=== PATIENT | female | born 1985 | race Caucasian/White ===

== ENCOUNTER 2017-10-13 00:45 | Outpatient (CLI) | payer BC, MEDICAID ==
[2017-10-13 01:32] LABS: APPEARANCE,URINE SLIGHTLY-CLOUDY; BILIRUBIN,URINE NEGATIVE (NEGATIVE); COLOR,URINE YELLOW; GLUCOSE, URINE NEGATIVE (NEGATIVE); KETONES,URINE NEGATIVE (NEGATIVE); LEUKOCYTE ESTERASE,URINE NEGATIVE (NEGATIVE); NITRITE,URINE NEGATIVE (NEGATIVE); PROTEIN,URINE NEGATIVE (NEGATIVE); URINE SPECIFIC GRAVITY 1.009; UROBILINOGEN,URINE NEGATIVE mg/dL (<2.0)
[2017-10-13 01:47] LABS: URINE AMPHETAMINES SCREEN NEGATIVE; URINE BARBITURATES SCREEN NEGATIVE; URINE BENZODIAZEPINES SCREEN NEGATIVE; URINE COCAINE SCREEN NEGATIVE; URINE MARIJUANA (THC) SCREEN NEGATIVE; URINE METHADONE SCREEN NEGATIVE; URINE PHENCYCLIDINE SCREEN NEGATIVE
== END 2017-10-13 04:26 | disposition home or self-care (01) ==
LOC: LC 00:45
PROVIDERS: ATTEND Obstetrics & Gynecology
PROC: 4A1HXCZ Monitoring of Products of Conception, Cardiac Rate, External Approach (ICD-10-PCS; principal; 2017-10-13)
DX: O47.1 False labor at or after 37 completed weeks of gestation (principal); Z3A.38 38 weeks gestation of pregnancy
CPT/HCPCS: 59025; 80307; 81005

== ENCOUNTER 2017-10-21 14:47 | Inpatient (IN) | payer BC, MEDICAID ==
--- NOTE | 2017-10-21 14:50 | Non Stress Test Report ---
Non Stress Test Datetime Report Generated by CPN: 10/21/2017 14:50 DEMOGRAPHIC EGA NST: 38.4 INDICATION Indication for Study: Ordered by Provider URINE RESULTS Urine Protein, NST: Negative Urine Ketones - NST: Negative Urine Glucose - NST: Negative Urine Blood - NST: Negative MONITORING Monitor Explained: Monitor Explained; Test Explained; Patient Verbalized Understanding Time on Monitor: 10/13/2017 01:48 Time off Monitor: 10/13/2017 04:05 NST Duration: 137 NST INTERVENTIONS NST Interventions: PO Hydration Physician Notified NST: Dr. Ramirez BABY A: [id number] BABY A Movement : Present Contraction Frequency : 1-11 FHR Baseline : 135 Accelerations : 15X15 Decelerations : None Variability : Moderate 6-25bpm NST Review: Meets Criteria for Reactive NST NST Review and Verified By : GENNARO Campos NSHarsha Results: Reactive NST REPORT Report Trigger: Send Report
[2017-10-21 15:29] LABS: APPEARANCE,URINE CLEAR; BILIRUBIN,URINE NEGATIVE (NEGATIVE); COLOR,URINE YELLOW; GLUCOSE, URINE NEGATIVE (NEGATIVE); KETONES,URINE NEGATIVE (NEGATIVE); LEUKOCYTE ESTERASE,URINE NEGATIVE (NEGATIVE); NITRITE,URINE NEGATIVE (NEGATIVE); PROTEIN,URINE NEGATIVE (NEGATIVE); URINE SPECIFIC GRAVITY 1.006; UROBILINOGEN,URINE NEGATIVE mg/dL (<2.0)
[2017-10-21 15:48] LABS: URINE AMPHETAMINES SCREEN NEGATIVE; URINE BARBITURATES SCREEN NEGATIVE; URINE BENZODIAZEPINES SCREEN NEGATIVE; URINE COCAINE SCREEN NEGATIVE; URINE MARIJUANA (THC) SCREEN NEGATIVE; URINE METHADONE SCREEN NEGATIVE; URINE PHENCYCLIDINE SCREEN NEGATIVE
--- NOTE | 2017-10-21 17:42 | Non Stress Test Report ---
Non Stress Test Datetime Report Generated by CPN: 10/21/2017 17:42 DEMOGRAPHIC EGA NST: 39.5 INDICATION Indication for Study: Ordered by Provider MONITORING Monitor Explained: Monitor Explained; Test Explained; Patient Verbalized Understanding Time on Monitor: 10/21/2017 15:14 Time off Monitor: 10/21/2017 15:38 NST Duration: 24 NST INTERVENTIONS NST Interventions: None Physician Notified NST: Dr. Cutler BABY A Movement : Present Contraction Frequency : 4-7 FHR Baseline : 155 Accelerations : 15X15 Decelerations : None Variability : Moderate 6-25bpm NST Review: Meets Criteria for Reactive NST NST Review and Verified By : Mayra Delgado RN NST Results: Reactive NST REPORT Report Trigger: Send Report
[2017-10-21] MEDS ORDERED: LIDOCAINE 1% INJ-PF (10 MG/ML) 30 ML SDV ONE (19:05)
[2017-10-21] MEDS ORDERED: OXYTOCIN/NORMAL SALINE 20 UNIT/1,000 ML RTUINJ ONE (19:05)
[2017-10-21] MEDS ORDERED: MISOPROSTOL 0.2 MG TABLET ONE (19:05)
[2017-10-21] MEDS ORDERED: RINGERS SOLUTION,LACTATED 1,000 ML IV PRN (19:06)
[2017-10-21] MEDS ORDERED: RINGERS SOLUTION,LACTATED 1,000 ML IV ONE (19:06)
[2017-10-21 19:31] LABS: ABSOLUTE BASOPHILS # (AUTO) 0.1 10^3/uL (0.0-0.2); ABSOLUTE EOSINOPHILS # (AUTO) 0.1 10^3/uL (0.0-0.6); ABSOLUTE LYMPHOCYTES (AUTO) 2.5 10^3/uL (0.5-4.7); ABSOLUTE MONOCYTES (AUTO) 0.7 10^3/uL (0.1-1.4); ABSOLUTE NEUT (AUTO) 13.7 10^3/uL (1.7-8.2); BASOPHILS % (AUTO) 0.4 % (0-2); EOSINOPHILS % (AUTO) 0.4 % (0-6); HEMATOCRIT 37.9 % (36.0-47.0); HEMOGLOBIN 13.2 g/dL (12.0-15.5); LYMPHOCYTES % (AUTO) 14.8 % (13-45); MEAN CORPUSCULAR HEMOGLOBIN 30.3 pg (27.0-33.4); MEAN CORPUSCULAR HGB CONC 34.9 g/dL (32.0-36.0); MEAN CORPUSCULAR VOLUME 87 fl (80-97); MONOCYTES % (AUTO) 4.1 % (3-13); PLATELET COUNT 189 10^3/uL (150-450); RED BLOOD COUNT 4.37 10^6/uL (3.72-5.28); RED CELL DISTRIBUTION WIDTH 13.6 % (11.5-14.0); SEGMENTED NEUTROPHILS % (AUTO) 80.3 % (42-78); TOTAL CELLS COUNTED % (AUTO) 100 %; WHITE BLOOD COUNT 17.1 10^3/uL (4.0-10.5)
--- NOTE | 2017-10-21 19:49 | Admission Physical ---
Datetime Report Generated by CPN: 10/21/2017 19:48 CURRENT ADMISSION Chief Complaint: Uterine Contractions Indication for Induction: Not Applicable Admit Impression : Term, Intrauterine ; Active Labor; Intact Membranes Admit Plan: Admit to Unit; Initiate Labor Protocol ALLERGIES Medication Allergies: Yes Medication Allergies: codeine/SV/Anaphylaxis (10/13/2017) Latex: No Latex Allergies Food Allergies: none Environmental Allergies: none OBSTETRICAL HISTORY EDC: 10/23/2017 00:00 : 6 Para: 2 Term: 2 : 0 SAB: 3 IAB: 0 Ectopic: 0 Livin Cesareans: 0 VBACs: 0 Multiple Births: 0 Gestational Diabetes: No Rh Sensitization: No Incompetent Cervix: No STELLA: No Infertility: No ART Treatment: No Uterine Anomaly: No IUGR: No Hx Previous C/S: No Macrosomia: No Hx Loss/Stillborn: No PIH: No Hx : No Placenta Previa/Abruption: No Depression/PP Depression: No PTL/PROM: No Post Hemorrhage: No Current Procedures: Ultrasound Obstetrical History Comments: G1: 2003 G2:2005, , girl 6#1 oz, induced postdates @ 41 weeks G3:2007 (D_C) G4:2010 (D_C) G5:2011, , boy 6# 3 oz @ 39 weeks G6: Current SEE RECORDS Alcohol: No Marijuana : No Cocaine: No Other Illicit Drugs: No Cigarettes: Current Everyday Smoker. [id number] Cigarette Frequency: 5 - 10 per day Advised to Stop: Yes MEDICAL HISTORY Diabetes: No Blood Transfusion: No Pulmonary Disease (Asthma, TB): Yes Breast Disease: No Hypertension: No Operations Accountant Surgery: No Heart Disease: No Hosp/Surgery: Yes Autoimmune Disorder: No Anesthetic Complications: No Kidney Disease: No Abnormal Pap Smear: Yes Neuro/Epilepsy: No Psychiatric Disorders: No Other Medical Diseases: No Hepatitis/Liver Disease: No Significant Family History: No Varicosities/Phlebitis: No Trauma/Violence : No Thyroid Dysfunction: No Medical History Comments: asthma (in childhood), PCOS, all abnormal paps per pt INFECTIOUS HISTORY Gonorrhea: No Genital Herpes: No Chlamydia: Yes Tuberculosis: No Syphilis: No Hepatitis: No HIV/AIDS Exposure: No Rash or Viral Illness: No HPV: No Infectious History Comments: chlamydia this (LIZETH negative); abnormal paps every year. PHYSICAL EXAM General: Normal HEENT: Normal Neurologic: Normal Thyroid: Deferred Heart: Normal Lungs: Normal Breast: Deferred Back: Normal Abdomen: Normal Genitourinary Exam: Normal Extremities: Normal DTRs: Normal Pelvic Type: Adequate Vital Signs: Reviewed VAGINAL EXAM Dilatation: 6 Effacement: 80 Station: 1 Contraction Comments: q 2-3 MEMBRANES Membranes: Intact FETUS A EGA: 39.5 Monitoring: External US FHR- Baseline: 155 Variability: Moderate 6-25bpm Accelerations: 15X15 Decelerations: None FHR Category: Category I Presentation: Vertex Admit Comment: 32yo [id number] at 39+5ega presented with regular uterine contractions and noted cervical change. AROM performed with thick meconium. Pt declines epidural and pain mediations including pudendal block. Elevated BPs at [facility] - PIH labs normal. Obesity - failed 1 hr GTT. H/o PCOS. Desires BTL. Chlamydia pos at [facility] - good LIZETH. REpeat GC/Chlam today. Rh negativce. GBS negative. Anticipate . Pt has a h/o fast labors. PLANS FOR LABOR AND DELIVERY Labor and Delivery: None Pain Management: None Feeding Preference: Breast Benefit of Breast Feed Discussed: Yes Circumcision: Yes INFORMED CONSENT Informed Consent Obtained: Vaginal Delivery; Risks, Benefits and Alternatives Discussed Signature: with User ID: [email or web address]
[2017-10-21] MEDS ORDERED: DIPH/PERTUSS(ACELL)/TETANUS VAC/PF 0.5 ML SYR (>=10YO) IM PRN (20:20)
[2017-10-21] MEDS ORDERED: NA PHOS,M-B/NA PHOS,DI-BA (ADULT) 133 ML ENEMA PR PRN (20:20)
[2017-10-21] MEDS ORDERED: OXYTOCIN/NORMAL SALINE 20 UNIT/1,000 ML RTUINJ IV PRN (20:20)
[2017-10-21] MEDS ORDERED: PROMETHAZINE HCL 25 MG TABLET PO PRN (20:20)
[2017-10-21] MEDS ORDERED: GLYCERIN/WITCH HAZEL LEAF 1 EACH MED..PAD TP PRN (20:20)
[2017-10-21] MEDS ORDERED: PSEUDOEPHEDRINE HCL 30 MG TABLET PO PRN (20:20)
[2017-10-21] MEDS ORDERED: DIPHENHYDRAMINE HCL 25 MG CAPSULE PO PRN (20:20)
[2017-10-21] MEDS ORDERED: PROMETHAZINE HCL INJ 25 MG/1 ML VIAL IV PRN (20:20)
[2017-10-21] MEDS ORDERED: BENZOCAINE/MENTHOL AEROSOL SPRAY 56 ML TOP PRN (20:20)
[2017-10-21] MEDS ORDERED: ACETAMINOPHEN 325 MG TABLET PO PRN (20:20)
[2017-10-21] MEDS ORDERED: MAGNESIUM HYDROXIDE SUSP 30 ML UDCUP PO PRN (20:20)
[2017-10-21] MEDS ORDERED: ZOLPIDEM TARTRATE 5 MG TABLET PO PRN (20:20)
[2017-10-21] MEDS ORDERED: DIBUCAINE 1% OINTMENT 28 GM TP PRN (20:20)
[2017-10-21] MEDS ORDERED: MEASLES,MUMPS&RUBELLA VACC/PF 0.5 ML VIAL SUBCUT PRN (20:20)
[2017-10-21] MEDS ORDERED: PROMETHAZINE HCL 25 MG SUPP.RECT PR PRN (20:20)
--- NOTE | 2017-10-21 21:31 | Warning Signs in Babies ---
VOD Warning Signs Datetime Report Generated by [facility]: 10/21/2017 21:31 VOD#608 -Warning Signs in Babies: Needs to be viewed. (10/13/2017 00:55:Nicolette Sol RN)
[2017-10-22] MEDS: FAMOTIDINE 20 MG TABLET PO SCH ×3 (00:23→22:08)
[2017-10-22] MEDS: IBUPROFEN 800 MG TABLET PO SCH ×4 (00:23→22:08)
[2017-10-22 08:04] LABS: HEMATOCRIT 37.7 % (36.0-47.0); HEMOGLOBIN 13.2 g/dL (12.0-15.5); MEAN CORPUSCULAR HEMOGLOBIN 30.4 pg (27.0-33.4); MEAN CORPUSCULAR HGB CONC 34.9 g/dL (32.0-36.0); MEAN CORPUSCULAR VOLUME 87 fl (80-97); PLATELET COUNT 170 10^3/uL (150-450); RED BLOOD COUNT 4.33 10^6/uL (3.72-5.28); RED CELL DISTRIBUTION WIDTH 13.6 % (11.5-14.0); WHITE BLOOD COUNT 14.7 10^3/uL (4.0-10.5)
[2017-10-22 09:14] LABS: CHLAM PCR NOT DETECTED (NOT DETECT); GON PCR NOT DETECTED (NOT DETECT)
--- NOTE | 2017-10-22 10:31 | PDOC PROGRESS REPORT ---
Subjective-OB Progress Note for:: 10/22/17 Subjective: 32yo G6 now P3 s/p ppd1. Patient ambulating and voiding without difficulty. Baby in NICU after delivery and in well baby now, and bonding without difficulty at this time. Denies concerns. Physical Exam (OB) Vital Signs: Temp Pulse Resp BP Pulse Ox 99.0 F 88 16 129/82 H 100 10/22/17 08:14 10/22/17 08:14 10/22/17 08:14 10/22/17 08:14 10/22/17 08:14 Intake & Output 10/21/17 10/22/17 10/23/17 06:59 06:59 06:59 Weight 99.79 kg - General General Appearance: Appears well In distress: None - PIH/Pre-Eclampsia Headache: Absent Epigastric Pain: No Visual Changes: No - Episiotomy/Laceration Site Condition: N/A - Lochia Lochia Amount: Small 10-25 ml Lochia Color: Rubra/Red - Abdomen Description: Soft Hernia Present: No Fundal Description: Firm, Midline Fundal Height: u/u - u/2 - Respiratory Respiratory Status: No respiratory distress - Extremities Upper extremity: Normal inspection Lower extremities: Normal inspection - Neurological Cognition: Normal Orientation: AAOx4 - Psychological Associated symptoms: Normal affect, Normal mood Objective-Diagnostic Laboratory: 10/22/17 07:53 10/21/17 10/21/17 10/21/17 15:02 19:00 19:00 WBC 17.1 H RBC 4.37 Hgb 13.2 Hct 37.9 MCV 87 MCH 30.3 MCHC 34.9 RDW 13.6 Plt Count 189 Seg Neutrophils % 80.3 H Lymphocytes % 14.8 Monocytes % 4.1 Eosinophils % 0.4 Basophils % 0.4 Absolute Neutrophils 13.7 H Absolute Lymphocytes 2.5 Absolute Monocytes 0.7 Absolute Eosinophils 0.1 Absolute Basophils 0.1 Urine Color YELLOW Urine Appearance CLEAR Urine pH 7.0 Ur Specific [place] 1.006 Urine Protein NEGATIVE Urine Glucose (UA) NEGATIVE Urine Ketones NEGATIVE Urine Blood NEGATIVE Urine Nitrite NEGATIVE Ur Leukocyte Esterase NEGATIVE Urine WBC (Auto) 1 Urine RBC (Auto) 0 Blood Type B NEGATIVE Antibody Screen NEGATIVE 10/22/17 10/22/17 07:53 07:53 WBC 14.7 H RBC 4.33 Hgb 13.2 Hct 37.7 MCV 87 MCH 30.4 MCHC 34.9 RDW 13.6 Plt Count 170 Seg Neutrophils % Lymphocytes % Monocytes % Eosinophils % Basophils % Absolute Neutrophils Absolute Lymphocytes Absolute Monocytes Absolute Eosinophils Absolute Basophils Urine Color Urine Appearance Urine pH Ur Specific [place] Urine Protein Urine Glucose (UA) Urine Ketones Urine Blood Urine Nitrite Ur Leukocyte Esterase Urine WBC (Auto) Urine RBC (Auto) Blood Type Cancelled Antibody Screen Assessment and Plan(PN) - Assessment and Plan (1) Vaginal delivery Is this a current diagnosis for this admission?: Yes Plan: Routine pp care. (2) Active labor at term Is this a current diagnosis for this admission?: Yes Plan: delivered (3) Rh negative status during , third trimester, single gestation Is this a current diagnosis for this admission?: Yes Plan: baby A neg, no rhogam needed (4) Chlamydia infection affecting Qualifiers: Trimester: unspecified trimester Qualified Code(s): O98.819 - Other maternal infectious and parasitic diseases complicating , unspecified trimester; A74.9 - Chlamydial infection, unspecified; A74.9 - Chlamydial infection, unspecified Is this a current diagnosis for this admission?: Yes Plan: negative cultures on admission. - Time Spent with Patient Time with patient: Less than 15 minutes Medications reviewed and adjusted accordingly: Yes - Disposition Anticipated Discharge: Home Within: within 24 hours
[2017-10-22] MEDS: PRENATAL VITAMIN W DHA CAPSULE PO SCH (10:57)
[2017-10-22] MEDS: DOCUSATE SODIUM 100 MG CAPSULE PO SCH ×2 (10:57→17:26)
[2017-10-22] MEDS: SENNOSIDES/DOCUSATE 8.6-50 MG 1 EACH TABLET PO SCH (10:57)
[2017-10-22] MEDS: FERROUS SULFATE 325 MG TABLET PO SCH ×2 (10:57→17:26)
[2017-10-23] MEDS: IBUPROFEN 800 MG TABLET PO SCH ×2 (05:48→14:22)
--- NOTE | 2017-10-23 09:02 | PDOC DISCHARGE SUMMARY ---
Final Diagnosis Discharge Date: 10/23/17 - Final Diagnosis (1) Active labor at term Is this a current diagnosis for this admission?: Yes (2) Chlamydia infection affecting Is this a current diagnosis for this admission?: Yes (3) Rh negative status during , third trimester, single gestation Is this a current diagnosis for this admission?: Yes (4) Vaginal delivery Is this a current diagnosis for this admission?: Yes Discharge Data - Discharge Medication Prescriptions: Ibuprofen [Motrin 800 mg Tablet] 800 mg PO Q8 #60 tablet Home Medications: Pnv W-O Ca No5/Fe Fumarate/FA [-U Capsule] 1 each PO DAILY 07/26/11 Docusate Sodium [Colace] 100 mg PO PRN PRN 10/13/17 Ibuprofen [Motrin 800 mg Tablet] 800 mg PO Q8 #60 tablet 10/23/17 Reason(s) for Admission: Onset of Labor Intrapartum Procedure(s): Spontaneous Vaginal Delivery - Diagnosis Test Laboratory: Temp Pulse Resp BP Pulse Ox 98.0 F 92 18 125/80 100 10/23/17 07:35 10/23/17 07:35 10/23/17 07:35 10/23/17 07:35 10/23/17 07:35 10/21/17 10/21/17 10/22/17 15:02 19:00 07:53 RBC 4.37 4.33 Hgb 13.2 13.2 Hct 37.9 37.7 Urine Opiates Screen NEGATIVE - Discharge information/Instructions Discharge Activity: Activity As Tolerated, Balance Activity w/Rest, Pelvic Rest , No tub bath Discharge Diet: As Tolerated Disposition: HOME, SELF-CARE Follow up with: [facility] in: 4
[2017-10-23] MEDS: SENNOSIDES/DOCUSATE 8.6-50 MG 1 EACH TABLET PO SCH (09:40)
[2017-10-23] MEDS: PRENATAL VITAMIN W DHA CAPSULE PO SCH (09:40)
[2017-10-23] MEDS: DOCUSATE SODIUM 100 MG CAPSULE PO SCH (09:40)
[2017-10-23] MEDS: FAMOTIDINE 20 MG TABLET PO SCH (09:41)
[2017-10-23] MEDS: FERROUS SULFATE 325 MG TABLET PO SCH (09:41)
[2017-10-23 14:06] VITALS: BP 133/82
--- NOTE | 2017-11-01 13:39 | Delivery Summary ---
Del Sum A-C Datetime Report Generated by CPN: 11/01/2017 13:38 DELIVERY PERSONNEL DELIVERY PERSONNEL: [id number] Delivery Doctor:: Alaina Cutler MD Labor and Delivery Nurse:: Tamar Hidalgo RNsmokehouse operator Nurse:: Nicolette Sol RN Nursery Nurse:: Viridaina Fluler RN Reservoir Engineering Consultant/REFRIGERATOR REPAIRMAN: Yaa Grimes, ST MATERNAL INFORMATION Delivery Anesthesia: None Medications After Delivery: Pitocin Drip 20 Units/1000ml NSS Maternal Complications: Precipitous Labor (<3hrs) Provider Comments: VMI delivered in ISHA presentation with compound right hand. Shoulders and body delivered without difficulty. Cord doubly clamped and cut and to maternal abdomen for NRP. Placenta delivered intact spontaneously. FF at U. Good hemostasis. no perineal lacerations. baby to nursery due to Meconium. LABOR SUMMARY EDC: 10/23/2017 00:00 No. Babies in Womb: 1 Attempted: No Labor Anesthesia: None LABOR INFORMATION Reason for Induction: Not Applicable Onset of Labor: 10/21/2017 17:09 Complete Dilatation: 10/21/2017 20:04 Oxytocin: N/A Group B Beta Strep: negative Steroids Given: None Reason Steroids Not Administered: Not Applicable MEMBRANES Membranes Rupture Method: Artificial Rupture of Membranes: 10/21/2017 19:36 Length of Rupture (hr): 0.48 Amniotic Fluid Color: Moderate Meconium Amniotic Fluid Amount: Small STAGES OF LABOR Stage 1 hr: 2 Stage 1 min: 55 Stage 2 hr: 0 Stage 2 min: 1 Stage 3 hr: 0 Stage 3 min: 5 Total Time in Labor hr: 3 Total Time in Labor min: 1 VAGINAL DELIVERY Episiotomy: None Laceration #1: None Laceration Extension #1: N/A Laceration Repair: Not Applicable Sponge Count Correct: Yes Sharps Count Correct: Yes CSECTION DELIVERY Primary Indication: N/A Secondary Indication: N/A CSection Incidence: N/A Labor: N/A Elective: N/A CSection Incision: N/A BABY A INFORMATION Delivery Date/Time: 10/21/2017 20:05 Method of Delivery: Vaginal Born in Route : No : N/A Forceps: N/A Vacuum Extraction: N/A Shoulder Dystocia : No PRESENTATION/POSITION BABY A Presentation: Cephalic Cephalic Presentation: Vertex Vertex Position: Right Occipital Anterior with right compound hand Breech Presentation: N/A PLACENTA INFORMATION BABY A Placenta Delivery Time : 10/21/2017 20:10 Placenta Method of Delivery: Spontaneous Placenta Status: Delivered SCORES BABY A Heart Rate 1 min: >100 bpm Resp Effort 1 min: Good Cry Reflex Irritability 1 min: Cough or Sneeze or Pulls Away Muscle Tone 1 min: Active Motion Color 1 min: Blue/Pale Resuscitation Effort 1 min: N/A SCORE 1 MIN: 8 Heart Rate 5 min: >100 bpm Resp Effort 5 min: Good Cry Reflex Irritability 5 min: Cough or Sneeze or Pulls Away Muscle Tone 5 min: Active Motion Color 5 min: Blue/Pale Resuscitation Effort 5 min: N/A SCORE 5 MIN: 8 INFORMATION BABY A Gestational Age at Delivery: 39.5 Gestational Status: Full Term- 39- 40.6 Weeks Infant Outcome : Liveborn Infant Condition : Stable Sex: Male IDENTIFICATION BABY A Infant Verification Date/Time: 10/21/2017 20:54 ID Band Number: [id number] Mother's Name Verified: Yes RN Verifying : E. Shukrilek RN/ M. Hill RN WEIGHT/LENGTH BABY A Infant Birthweight (gm): 3250 Infant Weight (lb): 7 Weight (oz): 3 Infant Length (in): 20.00 Length (cm): 50.80 CORD INFORMATION BABY A No. Cord Vessels: 3 Nuchal Cord : N/A Cord Blood Taken: Yes-For Eval (Mom's Blood Type - or O+) Infant Suction: Mouth; Nose; Pharynx ASSESSMENT BABY A Complications: Meconium Physical Findings at Delivery: Caput Succedaneum Skin to Skin: No Design Manager/ALS Called : No Infant Care By: GENNARO Fuller Transferred To: Nursery BABY B INFORMATION : N/A SIGNATURES Signature: with User ID: [email or web address]
== END 2017-10-23 14:20 | disposition home or self-care (01) | DRG 775 ==
LOC: LC 14:47 → LR 19:03 → 2S 22:13
PROVIDERS: ADMIT Student in an Organized Health Care Education/Training Program; ATTEND Student in an Organized Health Care Education/Training Program
PROC: 10E0XZZ Delivery of Products of Conception, External Approach (ICD-10-PCS; principal; 2017-10-21)
DX: O13.4 Gestational [pregnancy-induced] hypertension without significant proteinuria, complicating childbirth (principal); O36.0930 Maternal care for other rhesus isoimmunization, third trimester, not applicable or unspecified; O77.0 Labor and delivery complicated by meconium in amniotic fluid; O62.3 Precipitate labor; O99.214 Obesity complicating childbirth; O32.6XX0 Maternal care for compound presentation, not applicable or unspecified; O99.334 Smoking (tobacco) complicating childbirth; F17.210 Nicotine dependence, cigarettes, uncomplicated; E66.9 Obesity, unspecified; Z68.35 Body mass index [BMI] 35.0-35.9, adult; Z3A.39 39 weeks gestation of pregnancy; Z37.0 Single live birth
CPT/HCPCS: 36415; 80307; 81001; 85025; 85027; 86592; 86850; 86900; 86901; 87491; 87591; J2590; J3490

== ENCOUNTER 2018-05-27 15:54 | Emergency (ER) | payer BC, MEDICAID ==
--- NOTE | 2018-05-27 16:24 | ER Document Report ---
ED Medical Screen (RME) - General Chief Complaint: Eye Pain Stated Complaint: EYE ISSUE Time Seen by Provider: 05/27/18 16:12 Primary Care Provider: CHERYLE VENEGAS MD [Primary Care Provider] - Follow up as needed Mode of Arrival: Ambulatory Information source: Patient Notes: 32-year-old female presents with complaint of left eye pain and swelling. Patient has been recently treated for conjunctivitis with erythromycin and Polytrim without improvement. Patient now has associated facial swelling and periorbital tenderness. Patient sent here by her primary care physician for concern for periorbital cellulitis I have greeted and performed a rapid initial assessment of this patient. A comprehensive ED assessment and evaluation of the patient, analysis of test results and completion of medical decision making process we will be contacted by additional ED providers. PHYSICAL EXAMINATION: Vital signs reviewed GENERAL: Well-appearing, well-nourished and in no acute distress. LUNGS: No respiratory distress Musculoskeletal: Normal range of motion NEUROLOGICAL: Normal speech, normal gait. PSYCH: Normal mood, normal affect. EENT: Left eye with erythematous conjunctive, eyelid swelling, periorbital tenderness. Denies pain with eye movement TRAVEL OUTSIDE OF THE [place] IN LAST 30 DAYS: No - HPI Onset: Other Onset/Duration: Persistent, Worse Quality of pain: Throbbing Severity: Moderate Associated Symptoms: denies: Fever Exacerbated by: Denies Relieved by: Denies Similar symptoms previously: Yes Recently seen / treated by doctor: Yes - Related Data Smoking: Non-smoker Frequency of alcohol use: None Drug Abuse: None Allergies/Adverse Reactions: codeine [Codeine] Allergy (Severe, Verified 10/21/17 20:28) Anaphylaxis Past Medical History - Social History Chew tobacco use (# tins/day): No Frequency of alcohol use: Occasional Drug Abuse: None Renal/ Medical History: Denies: Hx Peritoneal Dialysis Physical Exam - Vital signs Vitals: Temp Pulse Resp BP Pulse Ox 98.3 F 97 14 130/82 H 98 05/27/18 15:58 05/27/18 15:58 05/27/18 15:58 05/27/18 15:58 05/27/18 15:58 Course - Vital Signs Vital signs: Temp Pulse Resp BP Pulse Ox 98.3 F 97 14 130/82 H 98 05/27/18 15:58 05/27/18 15:58 05/27/18 15:58 05/27/18 15:58 05/27/18 15:58 Doctor's Discharge - Discharge Referrals: CHERYLE VENEGAS MD [Primary Care Provider] - Follow up as needed
[2018-05-27] MEDS ORDERED: CLINDAMYCIN 600 MG/D5W RTU 600 MG/50 ML RTUPB IV SCH (16:30)
[2018-05-27 16:41] LABS: ABSOLUTE EOSINOPHILS # (AUTO) 0.2 10^3/uL (0.0-0.6); ABSOLUTE LYMPHOCYTES (AUTO) 2.7 10^3/uL (0.5-4.7); ABSOLUTE MONOCYTES (AUTO) 0.6 10^3/uL (0.1-1.4); ABSOLUTE NEUT (AUTO) 7.8 10^3/uL (1.7-8.2); BASOPHILS % (AUTO) 0.3 % (0-2); EOSINOPHILS % (AUTO) 1.6 % (0-6); HEMATOCRIT 46.4 % (36.0-47.0); HEMOGLOBIN 15.7 g/dL (12.0-15.5); LYMPHOCYTES % (AUTO) 24.1 % (13-45); MEAN CORPUSCULAR HEMOGLOBIN 29.9 pg (27.0-33.4); MEAN CORPUSCULAR HGB CONC 33.8 g/dL (32.0-36.0); MEAN CORPUSCULAR VOLUME 88 fl (80-97); MONOCYTES % (AUTO) 5.1 % (3-13); PLATELET COUNT 282 10^3/uL (150-450); RED BLOOD COUNT 5.25 10^6/uL (3.72-5.28); RED CELL DISTRIBUTION WIDTH 12.6 % (11.5-14.0); SEGMENTED NEUTROPHILS % (AUTO) 68.9 % (42-78); TOTAL CELLS COUNTED % (AUTO) 100 %; WHITE BLOOD COUNT 11.3 10^3/uL (4.0-10.5)
[2018-05-27 17:00] LABS: ALANINE AMINOTRANSFERASE 43 U/L (9-52); ALBUMIN 4.6 g/dL (3.5-5.0); ALKALINE PHOSPHATASE 68 U/L (38-126); ANION GAP 11 (5-19); ASPARTATE AMINO TRANSFERASE 34 U/L (14-36); BILIRUBIN,DIRECT 0.2 mg/dL (0.0-0.4); BILIRUBIN,TOTAL 0.4 mg/dL (0.2-1.3); BLOOD UREA NITROGEN 17 mg/dL (7-20); CALCIUM 9.9 mg/dL (8.4-10.2); CARBON DIOXIDE 24 mmol/L (22-30); CHLORIDE 102 mmol/L (98-107); GLUCOSE 89 mg/dL (75-110); POTASSIUM 4.4 mmol/L (3.6-5.0); TOTAL PROTEIN 8.2 g/dL (6.3-8.2)
--- NOTE | 2018-05-27 17:03 | RADIOLOGY REPORT (SQ) ---
EXAM DESCRIPTION: CT FACIAL AREA WITH COMPLETED DATE/TIME: 05/27/2018 4:46 pm REASON FOR STUDY: facial swelling COMPARISON: None. TECHNIQUE: Post contrast images through the facial bones and orbits windowed for bone and soft tissu e. Additional coronal and sagittal reconstructed images reviewed. All images stored on PACS. All CT scanners at this facility use dose modulation, iterative reconstruction, and/or weight based d osing when appropriate to reduce radiation dose to as low as reasonably achievable (ALARA). [facility]: Dose Right [facility]: CareDose [facility]: Dose Right [facility]: Teradose 4D [facility]: Veduca CONTRAST TYPE AND DOSE: contrast/concentration: Isovue 350.00 mg/ml; Total Contrast Delivered: 50.0 ml; Total Saline Delivered: 50.0 ml RENAL FUNCTION: None required. The patient is less than 50 years old. RADIATION DOSE: CT Rad equipment meets quality standard of care and radiation dose reduction techniq ues were employed. CTDIvol: 30.4 mGy. DLP: 589 mGy-cm. . LIMITATIONS: None. FINDINGS: FACIAL BONES: No fracture or bone lesion. ORBITS: Intact. No fracture. Symmetric intact globes and retroorbital soft tissues. PARANASAL SINUSES: Considerable mucoperiosteal thickening is seen in the left maxillary sinus. No khai al polyps. Maxillary sinus outlets are patent. SOFT TISSUES: There appears to be mild palpebral and infraorbital soft tissue swelling on the left. INFERIOR BRAIN: Limited view. No acute findings. OTHER: There is mild upper cervical and submandibular adenopathy. IMPRESSION: Mild soft tissue swelling of the left eyelid and infraorbital tissues. Mild adenopathy as described. No osseous lesions. TECHNICAL DOCUMENTATION: JOB ID: [id number] Quality ID # [id number]: Final reports with documentation of one or more dose reduction techniques (e.g., Au tomated exposure control, adjustment of the mA and/or kV according to patient size, use of iterative reconstruction technique) 2010 [employer]- All Rights Reserved Reading location - IP/workstation name: [email or web address]
--- NOTE | 2018-05-27 18:38 | ER Document Report ---
ED General - General Chief Complaint: Eye Pain Stated Complaint: EYE ISSUE Time Seen by Provider: 05/27/18 16:12 Primary Care Provider: NISHI PHILLIPS MD [ACTIVE STAFF] - Follow up as needed CHERYLE VENEGAS MD [ACTIVE STAFF] - Follow up as needed Mode of Arrival: Ambulatory Information source: Patient TRAVEL OUTSIDE OF THE [place] IN LAST 30 DAYS: No - HPI Onset: Other - 4 days Onset/Duration: Gradual Quality of pain: Sharp Severity: Mild Pain Level: 2 Associated symptoms: None Exacerbated by: Denies Relieved by: Denies Similar symptoms previously: No Recently seen / treated by doctor: Yes - Related Data Allergies/Adverse Reactions: codeine [Codeine] Allergy (Severe, Verified 10/21/17 20:28) Anaphylaxis Past Medical History - General Information source: Patient - Social History Smoking Status: Current Every Day Smoker Chew tobacco use (# tins/day): No Frequency of alcohol use: Occasional Drug Abuse: None Family History: Reviewed & Not Pertinent Patient has suicidal ideation: No Patient has homicidal ideation: No Renal/ Medical History: Denies: Hx Peritoneal Dialysis Review of Systems - Review of Systems Constitutional: No symptoms reported EENT: Eye pain, Eye discharge Cardiovascular: No symptoms reported Respiratory: No symptoms reported Gastrointestinal: No symptoms reported Genitourinary: No symptoms reported Female Genitourinary: No symptoms reported Musculoskeletal: No symptoms reported Skin: No symptoms reported Hematologic/Lymphatic: No symptoms reported Neurological/Psychological: No symptoms reported -: Yes All other systems reviewed and negative Physical Exam - Vital signs Vitals: Temp Pulse Resp BP Pulse Ox 98.3 F 97 14 130/82 H 98 05/27/18 15:58 05/27/18 15:58 05/27/18 15:58 05/27/18 15:58 05/27/18 15:58 Interpretation: Normal - General General appearance: Appears well, Alert - HEENT Head: Normocephalic, Atraumatic Conjunctiva: Injected, Purulent discharge - Left eyelid swelling and redness with discharge. Cornea: Normal. No: Corneal abrasion, Corneal ulcer, Embedded foreign body, Flourescein stain uptake Extraocular movements intact: Yes Eyelashes: Matted Pupils: PERRL Visual acuity- Right eye: 20/20 Visual acuity- Left eye: 20/40 Visual acuity- Both eyes: 20/30 Corrective lenses worn: No Anterior chamber: Normal Nerve palsy: No Visual umanzor normal: Yes - Respiratory Respiratory status: No respiratory distress Chest status: Nontender Breath sounds: Normal Chest palpation: Normal - Cardiovascular Rhythm: Regular Heart sounds: Normal auscultation Murmur: No - Abdominal Inspection: Normal Distension: No distension Bowel sounds: Normal Tenderness: Nontender Organomegaly: No organomegaly - Back Back: Normal, Nontender - Extremities General upper extremity: Normal inspection, Nontender, Normal color, Normal ROM, Normal temperature General lower extremity: Normal inspection, Nontender, Normal color, Normal ROM, Normal temperature, Normal weight bearing. No: Love's sign - Neurological Neuro grossly intact: Yes Cognition: Normal Orientation: AAOx4 [place] Coma Scale Eye Opening: Spontaneous [place] Coma Scale Verbal: Oriented Ginger Coma Scale Motor: Obeys Commands Ginger Coma Scale Total: 15 Speech: Normal Motor strength normal: LUE, RUE, LLE, RLE Sensory: Normal - Psychological Associated symptoms: Normal affect, Normal mood - Skin Skin Temperature: Warm Skin Moisture: Dry Skin Color: Normal Course - Vital Signs Vital signs: Temp Pulse Resp BP Pulse Ox 97.8 F 110 H 18 134/92 H 97 05/27/18 22:00 05/27/18 22:00 05/27/18 22:00 05/27/18 22:00 05/27/18 22:00 - Laboratory Result Diagrams: 05/27/18 16:29 05/27/18 16:29 Laboratory results interpreted by me: 05/27/18 16:29 WBC 11.3 H Hgb 15.7 H - Diagnostic Test Radiology reviewed: Reports reviewed - Consults Dr Nishi Phillips Time consulted: 21:20 Reason for consultation: 05/27/18 21:31 Left eye infection. Consulted provider: follow-up in office - Dr. Phillips 1 patient to be discharged home with p.o. antibiotics on I drops. He will the patient to follow-up in his clinic tomorrow morning at 9 AM. Discharge - Discharge Clinical Impression: Periorbital cellulitis of left eye Condition: Stable Disposition: HOME, SELF-CARE Instructions: Cellulitis ([facility]) Additional Instructions: Please follow-up with Dr. Nishi Phillips tomorrow morning at 9 AM in his office. Return to the emergency room if your condition worsens. Dr Phillips office phone number: [phone]. Prescriptions: Amox Tr/Potassium Clavulanate [Augmentin 875-125 Tablet] 1 tab PO BID 10 Days tablet Besifloxacin HCl [Besivance 0.6% Oph Susp 5 ml] 1 drop OP QID #1 bottle Clindamycin HCl 300 mg PO TID #30 capsule Ibuprofen [Motrin 600 Mg Tablet] 600 mg PO TID PRN #20 tablet PRN Reason: Pain Scale Of 4 Referrals: CHERYLE VENEGAS MD [ACTIVE STAFF] - Follow up as needed NISHI PHILLIPS MD [ACTIVE STAFF] - Follow up as needed
[2018-05-27] MEDS ORDERED: TETRACAINE HCL 0.5% OPH SOLN 4 ML OS ONE (18:45)
[2018-05-27] MEDS ORDERED: BESIFLOXACIN HCL 0.6% OPH SUSP 5 ML BOTTLE OS ONE (21:19)
[2018-05-27] MEDS ORDERED: AMOXICILLIN TR/POT CLAVULANATE 500-125 MG TAB PO ONE (21:20)
[2018-05-27 22:20] VITALS: BP 134/92
== END 2018-05-27 22:25 | disposition home or self-care (01) ==
LOC: ER 15:54
DX: L03.213 Periorbital cellulitis (principal); F17.200 Nicotine dependence, unspecified, uncomplicated; Z87.892 Personal history of anaphylaxis; Z88.5 Allergy status to narcotic agent
CPT/HCPCS: 99284; 96366; 96365; 36415; 85025; 80053; 70487; J3490

== ENCOUNTER 2020-01-23 05:30 | Day surgery (SDC) | payer OTHER ==
[2020-01-20 09:29] LABS: ABSOLUTE BASOPHILS # (AUTO) 0.1 10^3/uL (0.0-0.2); ABSOLUTE EOSINOPHILS # (AUTO) 0.2 10^3/uL (0.0-0.6); ABSOLUTE LYMPHOCYTES (AUTO) 2.7 10^3/uL (0.5-4.7); ABSOLUTE MONOCYTES (AUTO) 0.6 10^3/uL (0.1-1.4); ABSOLUTE NEUT (AUTO) 6.9 10^3/uL (1.7-8.2); BASOPHILS % (AUTO) 0.6 % (0-2); HEMATOCRIT 46.5 % (36.0-47.0); HEMOGLOBIN 15.9 g/dL (12.0-15.5); LYMPHOCYTES % (AUTO) 25.6 % (13-45); MEAN CORPUSCULAR HEMOGLOBIN 29.5 pg (27.0-33.4); MEAN CORPUSCULAR HGB CONC 34.3 g/dL (32.0-36.0); MEAN CORPUSCULAR VOLUME 86 fl (80-97); MONOCYTES % (AUTO) 5.5 % (3-13); PLATELET COUNT 245 10^3/uL (150-450); RED CELL DISTRIBUTION WIDTH 13.1 % (11.5-14.0); SEGMENTED NEUTROPHILS % (AUTO) 66.3 % (42-78); TOTAL CELLS COUNTED % (AUTO) 100 %; WHITE BLOOD COUNT 10.5 10^3/uL (4.0-10.5)
[2020-01-20 09:30] LABS: APPEARANCE,URINE CLEAR; BILIRUBIN,URINE NEGATIVE (NEGATIVE); COLOR,URINE YELLOW; GLUCOSE, URINE NEGATIVE (NEGATIVE); KETONES,URINE NEGATIVE (NEGATIVE); LEUKOCYTE ESTERASE,URINE NEGATIVE (NEGATIVE); NITRITE,URINE NEGATIVE (NEGATIVE); PROTEIN,URINE NEGATIVE (NEGATIVE); URINE SPECIFIC GRAVITY 1.008; UROBILINOGEN,URINE NEGATIVE mg/dL (<2.0)
[2020-01-20 09:52] LABS: ANION GAP 13 (5-19); BLOOD UREA NITROGEN 13 mg/dL (7-20); CALCIUM 10.4 mg/dL (8.4-10.2); CARBON DIOXIDE 26 mmol/L (22-30); CHLORIDE 102 mmol/L (98-107); GLUCOSE 94 mg/dL (75-110); POTASSIUM 5.3 mmol/L (3.6-5.0)
[~2020-01-23 05:30] MED LIST: CEFAZOLIN 1 GM/D5W RTU 1 GM/50 ML RTUPB IV ONE; CEFAZOLIN 1 GM/D5W RTU 1 GM/50 ML RTUPB IV PRN; LACTATED RINGERS 1000 ML IV PRN; LIDOCAINE 0.5% INJ-PF (5 MG/ML) 50 ML SDV SUBCUT PRN
[2020-01-23] MEDS ORDERED: LIDOCAINE 0.5% INJ-PF (5 MG/ML) 50 ML SDV ONE (06:20)
[2020-01-23] MEDS ORDERED: MIDAZOLAM 2 MG/2 ML INJ ONE (06:21)
[2020-01-23] MEDS ORDERED: PROPOFOL INJ 200 MG/20 ML VIAL IV ONE (06:21)
[2020-01-23] MEDS ORDERED: KETAMINE HCL INJ 500 MG/10 ML VIAL ONE (06:21)
[2020-01-23] MEDS ORDERED: FENTANYL CITRATE INJ/PF 100 MCG/2 ML AMPUL ONE (06:21)
[2020-01-23] MEDS ORDERED: MORPHINE SULFATE 10 MG/ML INJ IV PRN (06:55)
[2020-01-23] MEDS ORDERED: PROMETHAZINE HCL INJ 25 MG/1 ML VIAL IV PRN ×2 (06:55)
[2020-01-23] MEDS ORDERED: DIPHENHYDRAMINE HCL 50 MG/ML VIAL IV PRN (06:55)
[2020-01-23] MEDS ORDERED: FENTANYL CITRATE INJ/PF 100 MCG/2 ML AMPUL IV PRN ×3 (06:55)
[2020-01-23] MEDS ORDERED: MEPERIDINE HCL/PF INJ 25 MG/1 ML DISP.SYRIN IV PRN (06:55)
[2020-01-23] MEDS ORDERED: ONDANSETRON HCL INJ/PF 4 MG/2 ML SDV IV PRN (06:55)
[2020-01-23] MEDS ORDERED: LIDOCAINE 1% INJ-PF (10 MG/ML) 30 ML SDV ONE (07:17)
--- NOTE | 2020-01-23 07:50 | Operative Report ---
Operative Report DATE OF SURGERY: 01/23/20 PREOPERATIVE DIAGNOSIS: Menorrhagia POSTOPERATIVE DIAGNOSIS: Same OPERATION: Operative hysteroscopy, NovaSure ablation SURGEON: WOODY HORVATH ANESTHESIA: LMAC TISSUE REMOVED OR ALTERED: None COMPLICATIONS: None ESTIMATED BLOOD LOSS: 5 mL INTRAOPERATIVE FINDINGS: Normal endometrial cavity, 4.5 x 4.5 cm, intact post procedure. 1 minute 55 seconds burn PROCEDURE: INDICATIONS FOR PROCEDURE: The patient had abnormal uterine bleeding for several months unresponsive to usual outpatient management. The usual risks of bleeding, infection, anesthesia, and damage to organs and tissues had been discussed with the patient and understood. No guarantee of complete ammenorrhea has been established. Fertility is not an option. PROCEDURE: The patient was taken to the operating room, placed in a modified lithotomy position. After adequate anesthesia was ascertained, we prepped and draped in the usual manner for a hysteroscopy . Paracervical block done. The cervix readily admitted dilators. A single-tooth tenaculum was placed on the anterior lip of the cervix after anesthesia was instilled. Hysteroscopy ensued. A endometrial cavity was noted and measurements taken. Novasure was deployed and fired. Juanita 4.5x 4.5 cm; 1:50sec, 94 w-s power Re-scope confirmed good burn and integrity of the organ. Bleeding was nil at the completion of the procedure .
[2020-01-23] MEDS ORDERED: IBUPROFEN 800 MG TABLET ONE (08:04)
[2020-01-23 16:00] VITALS: BP 131/77
== END 2020-01-23 09:27 | disposition home or self-care (01) ==
LOC: OROUT 05:30
PROVIDERS: ATTEND Specialist
DX: N92.0 Excessive and frequent menstruation with regular cycle (principal); E28.2 Polycystic ovarian syndrome; F17.210 Nicotine dependence, cigarettes, uncomplicated; Z03.818 Encounter for observation for suspected exposure to other biological agents ruled out
CPT/HCPCS: 58563; 86900; 86901; 36415 ×2; 86850; 84132; 85025; 87635; 81025; 80048; 81001; 00952; J2250; J0690; J3010; J3490 ×3; J2704; C9803; 952